=== PATIENT | female | born 1985 | race Hispanic/Latino ===

== ENCOUNTER 2016-12-17 08:08 | Outpatient (CLI) | payer OTHER ==
--- NOTE | 2016-12-17 15:26 | Ultrasound Report ---
ABDOMINAL ULTRASOUND: 12/17/16 08:08:00 CLINICAL: Abdominal pain and nausea. FINDINGS: High-resolution ultrasound demonstrated a normal liver with normal size, contour and echogenicity. No liver mass. Normal hepatic vasculature and inferior vena cava. Normal gallbladder and bile ducts. The gallbladder wall measures 1.4 mm. The common bile duct measures 5.4 mm diameter. The pancreas is well imaged and normal Normal abdominal aorta. A normal spleen measures 7.8cm. Normal kidneys with normal renal echogenicity and normal non-dilated renal collecting systems and ureters. The right kidney measures 10.2 x 3.8 x 5.1cm. The left kidney measures 11.0 x 4.3 x 4.5cm. No renal mass or calculus. No ascites or mass. IMPRESSION: Normal abdomen
== END 2016-12-17 08:09 | disposition home or self-care (01) ==
LOC: SPVWC 08:08
PROVIDERS: ATTEND Family Medicine
DX: R10.13 Epigastric pain (principal)
CPT/HCPCS: 76700

== ENCOUNTER 2017-10-29 15:04 | Outpatient (CLI) | payer OTHER ==
[2017-10-29] MEDS ORDERED: LACTATED RINGERS 500 ML IV ONE (17:27)
--- NOTE | 2017-10-29 19:53 | Ultrasound Report ---
FINAL REPORT EXAM: US OB LIMITED HISTORY: well being TECHNIQUE: Limited obstetrical ultrasound PRIORS: None. FINDINGS: LMP: 05/29/2017 clinical Age: 21 w 6 d LMP EDC 03/05/2018 Presentation: Breech Activity: Monitored Placental location: Posterior Placental grade: 1 Cardiac motion: 161 BPM using M-mode doppler Amniotic Fluid Volume: Adequate IMPRESSION: Single intrauterine viable with an approximate age of 21 weeks 6 days.
== END 2017-10-29 17:25 | disposition home or self-care (01) ==
LOC: TRG 15:04
PROVIDERS: ATTEND Obstetrics & Gynecology
DX: O32.1XX0 Maternal care for breech presentation, not applicable or unspecified (principal); O47.02 False labor before 37 completed weeks of gestation, second trimester; Z3A.21 21 weeks gestation of pregnancy
CPT/HCPCS: 59025; 76815

== ENCOUNTER 2018-03-10 12:48 | Outpatient (CLI) | payer OTHER ==
[2018-03-10 13:15] VITALS: BP 114/59
== END 2018-03-10 14:30 | disposition home or self-care (01) ==
LOC: TRG 12:48
PROVIDERS: ATTEND Obstetrics & Gynecology
DX: O47.1 False labor at or after 37 completed weeks of gestation (principal); Z3A.40 40 weeks gestation of pregnancy; Z88.2 Allergy status to sulfonamides
CPT/HCPCS: 59025

== ENCOUNTER 2018-03-14 01:32 | Inpatient (IN) | payer OTHER ==
[2018-03-14] MEDS ORDERED: NITRATEST PAPER MC ONE (01:37)
[2018-03-14] MEDS ORDERED: TYLENOL PO PRN ×2 (02:43→22:27)
[2018-03-14] MEDS ORDERED: STADOL IV PRN (02:43)
[2018-03-14] MEDS ORDERED: SUBLIMAZE IV PRN (02:43)
[2018-03-14] MEDS ORDERED: PITOCin/NS 20 UNIT/1000ML DRIP 20 UNITS/1,000 ML BAG IV SCH ×3 (03:00→23:00)
[2018-03-14] MEDS ORDERED: POLYCILLIN/NS 2 GM/100 ML 2 GM/100 ML BAG IV SCH (03:00)
[2018-03-14] MEDS: LACTATED RINGERS 1,000 ML IV SCH ×2 (03:26→11:13)
[2018-03-14] MEDS: AMPICILLIN/NS 1 GM/50 ML 1 GM/50 ML BAG IV SCH ×4 (06:59→19:58)
[2018-03-14] MEDS ORDERED: BRETHINE SUB-Q PRN (09:02)
[2018-03-14] MEDS ORDERED: XYLOCAINE 2% INFILTRATI ONE (09:02)
[2018-03-14] MEDS ORDERED: PHENERGAN PO PRN ×2 (09:02→22:27)
[2018-03-14] MEDS ORDERED: MINERAL OIL PO PRN (09:02)
[2018-03-14] MEDS ORDERED: ZOFRAN IV PRN ×2 (09:02→22:27)
[2018-03-14] MEDS ORDERED: BRETHINE IVP PRN (09:02)
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
[2018-03-14 09:09] LABS: Hematocrit 37.5 % (30.3-42.9); Hemoglobin 12.5 gm/dl (10.1-14.3); Mean Corpuscular HGB Conc 34 % (30-34); Mean Corpuscular Hemoglobin 31 pg (28-32); Mean Corpuscular Volume 92 fl (79-97); Platelet Count 173 K/mm3 (140-440); Red Blood Count 4.08 M/mm3 (3.65-5.03); Red Cell Distribution Width 16.1 % (13.2-15.2)
[2018-03-14] MEDS ORDERED: PITOCin/NS 30 UNIT/500ML 30 UNITS/500 ML BAG IV SCH ×2 (10:00)
[2018-03-14] MEDS ORDERED: LACTATED RINGERS 1,000 ML IV SCH (10:00)
[2018-03-14] MEDS ORDERED: NARCAN 2 MG/2 ML IV PRN (15:51)
[2018-03-14] MEDS: fentaNYL-BUPIV 2 MCG/ML-0.125% 200 MCG/100 ML BAG EPIDURAL SCH ×2 (16:22→16:24)
--- NOTE | 2018-03-14 22:24 | Procedure Note ---
OB Delivery Note - Delivery Date of Delivery: 03/14/18 Surgeon: BRIAN LITTLE Estimated blood loss: 300cc - Vaginal Delivery presentation: vertex Delivery position: OA Intrapartum events: PROM->1hr before delivery, extend. tachycardia Delivery induction: none Delivery augmentation: rupture of membranes, pitocin Delivery monitor: external FHT, external uterine Route of delivery: vacuum extraction Indicators for instrumentation: nonreassuring FHR tracing Delivery placenta: spontaneous Delivery cord: 3 umbilical vessels Episiotomy: none Delivery laceration: 3rd degree Delivery repair: vicryl Anesthesia: epidural Delivery comments: delivered OA with the aid of a vacuum - 3 pulls, no pop-offs, and infant placed on Mom's chest for [id number] bonding and delayed cord clamping, cut by Dad - Infant A at 1 minute: 8 at 5 minutes: 9 Infant Gender: Female ([id number])
[2018-03-14] MEDS ORDERED: LANSINOH TP PRN (22:27)
[2018-03-14] MEDS ORDERED: BENADRYL PO PRN (22:27)
[2018-03-14] MEDS ORDERED: TUCKS PAD TP PRN (22:27)
[2018-03-14] MEDS ORDERED: MILK OF MAGNESIA PO PRN (22:27)
[2018-03-14] MEDS ORDERED: DULCOLAX PR PRN (22:27)
[2018-03-14] MEDS ORDERED: PHENERGAN PR PRN (22:27)
[2018-03-14] MEDS ORDERED: SODIUM CHLORIDE FLUSH SYRINGE 10 ML IV NR (23:00)
[2018-03-15] MEDS: MOTRIN PO SCH ×3 (01:32→16:14)
[2018-03-15] MEDS ORDERED: DERMOPLAST TP PRN (01:33)
[2018-03-15] MEDS ORDERED: BOOSTRIX IM ONE (06:00)
[2018-03-15] MEDS ORDERED: M-M-R II VACCINE SUB-Q ONE (06:00)
[2018-03-15] MEDS: COLACE PO SCH (09:08)
[2018-03-15] MEDS: PRENATAL VITAMIN PO SCH (09:09)
[2018-03-15] MEDS: FEOSOL PO SCH (09:09)
[2018-03-15 10:50] LABS: Hematocrit 34.6 % (30.3-42.9); Hemoglobin 11.4 gm/dl (10.1-14.3)
--- NOTE | 2018-03-15 18:32 | Progress Note ---
Assessment and Plan - Patient Problems (1) 41 weeks gestation of Onset Date: 03/14/18 Current Visit: Yes Status: Resolved (2) (normal spontaneous vaginal delivery) Onset Date: 03/15/18 Current Visit: Yes Status: Resolved Plan to address problem: A: S/P - PPD #1 Doing well Asymptomatic anemia - stable P: May go home tomorrow. Subjective - Subjective Date of service: 03/15/18 Principal diagnosis: s/p - PPD #1 Interval history: Pt is feeling well without complaints. Bleeding improved. Patient reports: appetite normal, voiding normally, pain well controlled, flatus , ambulating normally, no dizzy ambulation, no nauseated Bernard: doing well, nursing well, bottle feeding Objective - Vital Signs Latest vital signs: Vital Signs Temp Pulse Resp BP BP Pulse Ox 03/15/18 16:32 98.4 F 86 20 106/52 03/15/18 12:14 93 H 99/44 96 03/15/18 12:10 98.4 F 03/15/18 09:07 20 03/15/18 08:25 98.1 F 90 20 106/48 03/15/18 00:00 98.9 F 89 18 112/69 03/14/18 23:20 101 H 105/59 03/14/18 23:05 103 H 101/56 03/14/18 22:51 113 H 102/57 03/14/18 22:35 118 H 102/51 03/14/18 22:29 116 H 109/55 03/14/18 21:54 168 H 96 03/14/18 21:49 120 H 94 03/14/18 21:44 142 H 96 03/14/18 21:39 120 H 93 03/14/18 21:34 124 H 95 03/14/18 21:33 143 H 96 03/14/18 21:29 141 H 94 03/14/18 21:24 127 H 89 03/14/18 21:19 129 H 95 03/14/18 21:18 95 03/14/18 20:41 145 H 93 03/14/18 20:38 131 H 95 03/14/18 20:36 126 H 96 03/14/18 20:33 141 H 96 03/14/18 20:31 133 H 99 03/14/18 20:26 133 H 95 03/14/18 20:24 132 H 96 03/14/18 20:21 131 H 97 03/14/18 20:17 132 H 96 03/14/18 20:16 139 H 98 03/14/18 20:11 131 H 96 03/14/18 20:06 128 H 99 03/14/18 20:03 114 H 94 03/14/18 20:01 132 H 99 03/14/18 19:56 143 H 97 03/14/18 19:51 129 H 98 03/14/18 19:47 131 H 96 03/14/18 19:46 143 H 99 03/14/18 19:41 134 H 96 03/14/18 19:36 144 H 98 03/14/18 19:32 124 H 86 03/14/18 19:31 134 H 97 03/14/18 19:26 129 H 96 03/14/18 19:21 131 H 98 03/14/18 19:20 129 H 96 03/14/18 19:16 123 H 98 03/14/18 19:11 135 H 97 03/14/18 19:07 123 H 96 03/14/18 19:06 129 H 99 03/14/18 19:05 100.6 F H 22 03/14/18 19:01 124 H 97 03/14/18 18:56 128 H 96 03/14/18 18:51 126 H 96 03/14/18 18:50 116 H 113/55 03/14/18 18:46 124 H 97 03/14/18 18:41 121 H 100 03/14/18 18:36 120 H 98 03/14/18 18:33 99.8 F H 03/14/18 18:31 115 H 99 03/14/18 18:30 16 Intake and Output 03/15/18 03/15/18 03/15/18 06:59 14:59 22:59 Intake Total 900 240 360 Output Total 700 600 300 Balance 200 -360 60 Intake: Oral 600 240 360 Intake, Free Water 300 Output: Urine 700 600 300 Indwelling Catheter 700 Void 600 300 Other: Total, Intake Amount 200 120 360 Total, Output Amount 700 400 300 - Exam Breasts: Present: deferred Cardiovascular: Present: Regular rate Lungs: Present: Clear to auscultation Abdomen: Present: normal appearance, soft Uterus: Present: normal, firm, fundal height below umbilicus Extremities: Present: normal - Labs Labs: Laboratory Tests 03/14/18 03/14/18 03/14/18 02:15 08:31 08:31 WBC 12.0 H RBC 4.08 Hgb 12.5 Hct 37.5 MCV 92 MCH 31 MCHC 34 RDW 16.1 H Plt Count 173 RPR Nonreactive Blood Type B POSITIVE Antibody Screen Negative 03/15/18 10:28 WBC RBC Hgb 11.4 Hct 34.6 MCV MCH MCHC RDW Plt Count RPR Blood Type Antibody Screen
--- NOTE | 2018-03-15 18:36 | Discharge Summary ---
Providers - Providers Date of Admission: 03/14/18 02:23 Date of discharge: 03/16/18 Attending physician: BRIAN LITTLE Primary care physician: BRIAN LITTLE Hospitalization Reason for admission: active labor, rupture of membranes, IUP at term Delivery: Episiotomy: none Laceration: 3rd degree Other procedures: none complications: none Discharge diagnosis: IUP at term delivered baby: female Hospital course: Unremarkable. Condition at discharge: Good Disposition: DC-01 TO HOME OR SELFCARE - Discharge Diagnoses (1) 41 weeks gestation of Status: Resolved (2) (normal spontaneous vaginal delivery) Status: Resolved Plan - Discharge Medications Prescriptions: Benzocaine/Menthol [Dermoplast] 1 spray TP PRN PRN #1 can PRN Reason: Episiotomy Pain Docusate Sodium [Colace CAP] 100 mg PO BID #60 capsule Ferrous Sulfate [Feosol 325 MG tab] 325 mg PO BID #60 tablet HYDROcodone/APAP 5-325 [[place] 5-325 mg TAB] 1 each PO Q6H PRN #20 tablet PRN Reason: Pain, Moderate (4-6) Vit-Fe Fumar-FA [ Vitamin] 1 each PO QDAY #30 tablet - Provider Discharge Summary Activity: routine, no sex for 6 weeks, no heavy lifting 4 weeks, no strenuous exercise Diet: routine Instructions: routine Additional instructions: [] Smoking cessation referral if applicable(refer to patient education folder for contact #) [] Refer to [facility]'s [facility] Booklet Call your doctor immediately for: * Fever > 100.5 * Heavy vaginal bleeding ( >1 pad per hour) * Severe persistent headache * Shortness of breath * Reddened, hot, painful area to leg or breast * Drainage or odor from incision. * Keep incision clean and dry at all times and follow doctor's instructions regarding bathing/showering - Follow up plan Follow up: BRIAN LITTLE MD [Primary Care Provider] - 6 Weeks MOMO ANDREWS CNM [Advanced Practice Nurse] - 6 Weeks
[2018-03-16] MEDS: MOTRIN PO SCH ×3 (05:32→16:12)
[2018-03-16] MEDS: COLACE PO SCH ×2 (11:05)
[2018-03-16] MEDS: PRENATAL VITAMIN PO SCH (11:05)
[2018-03-16] MEDS: NORCO 5/325 PO PRN ×2 (11:05→16:11)
[2018-03-16] MEDS: FEOSOL PO SCH ×2 (11:05)
[2018-03-16 20:51] VITALS: BP 101/61
[2018-03-18] MEDS ORDERED: MAGNESIUM SULFATE 4GM/100ML 4 GM/100 ML BAG IV ONE (17:45)
== END 2018-03-16 20:47 | disposition home or self-care (01) | DRG 768 ==
LOC: TRG 01:32 → LD 02:23 → OB 03-15 00:17
PROVIDERS: ADMIT Obstetrics & Gynecology; ATTEND Obstetrics & Gynecology
PROC: 10D07Z6 Extraction of Products of Conception, Vacuum, Via Natural or Artificial Opening (ICD-10-PCS; principal; 2018-03-14)
PROC: 0DQR0ZZ Repair Anal Sphincter, Open Approach (ICD-10-PCS; 2018-03-14)
PROC: 3E0R3BZ Introduction of Anesthetic Agent into Spinal Canal, Percutaneous Approach (ICD-10-PCS; 2018-03-14)
PROC: 00HU33Z Insertion of Infusion Device into Spinal Canal, Percutaneous Approach (ICD-10-PCS; 2018-03-14)
PROC: 3E0234Z Introduction of Serum, Toxoid and Vaccine into Muscle, Percutaneous Approach (ICD-10-PCS; 2018-03-15)
DX: O99.824 Streptococcus B carrier state complicating childbirth (principal); Z37.0 Single live birth; O76 Abnormality in fetal heart rate and rhythm complicating labor and delivery; O99.02 Anemia complicating childbirth; Z3A.41 41 weeks gestation of pregnancy; Z88.2 Allergy status to sulfonamides; O42.02 Full-term premature rupture of membranes, onset of labor within 24 hours of rupture; Z79.899 Other long term (current) drug therapy; O70.20 Third degree perineal laceration during delivery, unspecified; Z23 Encounter for immunization
CPT/HCPCS: 36415; 85014; 85018; 85027; 86592; 86850; 86900; 86901; 90715; 99211; G0463; J0290; J0595; J2590; J7120